=== PATIENT | female | born 1950 | race Caucasian/White ===

== ENCOUNTER 2018-08-19 09:02 | Emergency (ER) | payer MEDICARE ==
[2018-08-19] MEDS ORDERED: NORMAL SALINE 1000 ML 1,000 ML IV ONE ×3 (09:17→13:27)
[2018-08-19] MEDS ORDERED: ONDANSETRON HCL INJ/PF 4 MG/2 ML SDV IV ONE (09:17)
[2018-08-19] MEDS ORDERED: NITROGLYCERIN 2% OINTMENT 1 GM PACKET TP ONE (09:18)
--- NOTE | 2018-08-19 09:20 | ER Document Report ---
ED Medical Screen (RME) - General Chief Complaint: Abdominal Pain Stated Complaint: ABDOMINAL PAIN Time Seen by Provider: 08/19/18 09:16 Notes: 68 years old female presents today with nearly 1 week history of left abdominal pain associated with nausea no vomiting, no diarrhea or constipation. No fever chills. No other constitutional symptoms. She has been losing weight over the last 6 months, 55 pounds weight loss, loss of appetite, general malaise. And noted pain and swelling over the left upper abdomen and flank region. She has not had any colonoscopy, have not seen any physicians since 1990. On examination-lean body mass, left flank has a large tender mass laying subcutaneously TRAVEL OUTSIDE OF THE [place] IN LAST 30 DAYS: No - Related Data Allergies/Adverse Reactions: Penicillins Allergy (Verified 08/19/18 09:04) Physical Exam - Vital signs Vitals: Temp Pulse Resp BP Pulse Ox 98.3 F 142 H 18 147/88 H 98 08/19/18 09:24 08/19/18 09:24 08/19/18 09:24 08/19/18 09:24 08/19/18 09:24 Course - Vital Signs Vital signs: Temp Pulse Resp BP Pulse Ox 98.3 F 142 H 18 147/88 H 98 08/19/18 09:24 08/19/18 09:24 08/19/18 09:24 08/19/18 09:24 08/19/18 09:24
--- NOTE | 2018-08-19 09:42 | RADIOLOGY REPORT (SQ) ---
EXAM DESCRIPTION: ACUTE ABDOMEN SERIES COMPLETED DATE/TIME: 08/19/2018 9:34 am REASON FOR STUDY: Abdominal pain acute COMPARISON: None. NUMBER OF VIEWS: Three views. TECHNIQUE: Frontal chest, supine abdomen and upright/decubitus abdomen radiographic images acquired. LIMITATIONS: None. FINDINGS: CHEST: No consolidation. Minimal linear atelectasis in the left base. No effusions. No pneumothorax. FREE AIR: None. No abnormal gas collections. BOWEL GAS PATTERN: There is moderate stool throughout the colon. No obstruction. CALCIFICATIONS: No suspicious calcifications. HARDWARE: None in the abdomen. SOFT TISSUES: No gross mass or suggestion of organomegaly. BONES: No acute fracture. No worrisome bone lesions. OTHER: No other significant finding. IMPRESSION: NO RADIOGRAPHIC EVIDENCE FOR ACUTE ABDOMINAL DISEASE. TECHNICAL DOCUMENTATION: JOB ID: [id number] [employer]- All Rights Reserved Reading location - IP/workstation name: [email or web address]
--- NOTE | 2018-08-19 10:14 | ER Document Report ---
ED General - General Chief Complaint: Abdominal Pain Stated Complaint: ABDOMINAL PAIN Time Seen by Provider: 08/19/18 09:16 Mode of Arrival: Ambulatory Information source: Patient Notes: 68-year-old female presents emergency department with a one-week history of left upper quadrant abdominal pain with associated nausea and diarrhea. Patient describes the pain as an aching sensation. She denies any radiation of the pain. She denies any alleviating or exacerbating factors. Patient has not had this pain previously. She says she hasn't followed up with a doctor in 30 years. She's unsure if she has any medical issues. She doesn't take medications. She does note a 55lb weight loss over the last 6 months. Patient denies any fever, chills, chest pain or shortness of breath. TRAVEL OUTSIDE OF THE [place] IN LAST 30 DAYS: No - HPI Onset: Last week Onset/Duration: Gradual Quality of pain: Achy Severity: Moderate Associated symptoms: Diarrhea, Nausea, Vomiting Exacerbated by: Denies Relieved by: Denies Similar symptoms previously: No Recently seen / treated by doctor: No - Related Data Allergies/Adverse Reactions: Penicillins Allergy (Verified 08/19/18 09:04) Past Medical History - General Information source: Patient - Social History Smoking Status: Former Smoker Family History: None, Reviewed & Not Pertinent Review of Systems - Review of Systems Constitutional: No symptoms reported EENT: No symptoms reported Cardiovascular: No symptoms reported Respiratory: No symptoms reported Gastrointestinal: Abdominal pain, Diarrhea, Nausea, Vomiting Genitourinary: No symptoms reported Female Genitourinary: No symptoms reported Musculoskeletal: No symptoms reported Skin: No symptoms reported Hematologic/Lymphatic: No symptoms reported Neurological/Psychological: No symptoms reported -: Yes All other systems reviewed and negative Physical Exam - Vital signs Vitals: Temp Pulse Resp BP Pulse Ox 98.3 F 142 H 18 147/88 H 98 08/19/18 09:24 08/19/18 09:24 08/19/18 09:24 08/19/18 09:24 08/19/18 09:24 - Notes Notes: PHYSICAL EXAMINATION: GENERAL: Well-appearing, well-nourished and in no acute distress. HEAD: Atraumatic, normocephalic. EYES: Pupils equal round and reactive to light, extraocular movements intact, conjunctiva are normal. ENT: Nares patent, oropharynx clear without exudates. Moist mucous membranes. NECK: Normal range of motion, supple without lymphadenopathy LUNGS: Breath sounds clear to auscultation bilaterally and equal. No wheezes rales or rhonchi. HEART: Regular rate and rhythm without murmurs ABDOMEN: Soft, tenderness to palpation in the LUQ. No rebound or guarding. Female : deferred Musculoskeletal: Normal range of motion, no pitting or edema. No cyanosis. NEUROLOGICAL: Cranial nerves grossly intact. Normal speech, normal gait. Normal sensory, motor exams PSYCH: Normal mood, normal affect. SKIN: Warm, Dry, normal turgor, no rashes or lesions noted. Course - Re-evaluation Re-evalutation: 08/19/18 10:09 EKG: Ventricular rate 118, VT interval 132, castration 86, QTc 455, sinus tachycardia, no ischemic changes. 08/19/18 13:55 Labs and imaging obtained. Patient's hemoglobin is 9.7. Rectal exam done. Patient is Hemoccult positive. Patient's white blood cell count is 23.8. Urinalysis shows signs of a urinary tract infection. CT of the abdomen pelvis was done. This shows a large irregular mass involving the wall of the colon at the splenic flexure consistent with a colonic malignancy. There is soft tissue in the adjacent abdominal wall of the left flank which appears to be an extension of the mass. There is also possible metastasis to the left adrenal and there is retroperitoneal adenopathy consistent with metastasis. I discussed the results with the patient. She does not want to be admitted to the hospital. Patient is still tachycardic. She understands that her condition may worsen or she may by leaving. Patient is competent to make her own decisions. She understands the risks of leaving AGAINST MEDICAL ADVICE and continues to refuse admission. I spoke with the oncologist on-call, Dr. Brand. She will see the patient in follow-up. She would like the patient to also have a referral to a transporter driver to have a colonoscopy done for biopsies. I discussed this plan with the patient. She is agreeable with following up outpatient with Dr. Rivera and with gastroenterology. Patient continues to decline admission. - Vital Signs Vital signs: Temp Pulse Resp BP Pulse Ox 98.3 F 142 H 18 147/88 H 98 08/19/18 09:24 08/19/18 09:24 08/19/18 09:24 08/19/18 09:24 08/19/18 09:24 - Laboratory Result Diagrams: 08/19/18 10:15 08/19/18 10:15 Laboratory results interpreted by me: 08/19/18 08/19/18 08/19/18 10:15 10:15 10:15 WBC 23.8 H Hgb 9.7 L Hct 31.4 L MCV 69 L MCH 21.3 L MCHC 30.8 L RDW 17.7 H Plt Count 797 H Seg Neuts % (Manual) 94 H Lymphocytes % (Manual) 1 L Metamyelocytes % 1 H Abs Neuts (Manual) 22.6 H Abs Lymphs (Manual) 0.2 L Glucose 127 H AST 46 H Alkaline Phosphatase 198 H Ammonia < 8.7 L Total Protein 6.1 L Albumin 2.8 L Urine Ketones Ur Leukocyte Esterase 08/19/18 12:00 WBC Hgb Hct MCV MCH MCHC RDW Plt Count Seg Neuts % (Manual) Lymphocytes % (Manual) Metamyelocytes % Abs Neuts (Manual) Abs Lymphs (Manual) Glucose AST Alkaline Phosphatase Ammonia Total Protein Albumin Urine Ketones TRACE H Ur Leukocyte Esterase LARGE H Discharge - Discharge Clinical Impression: Mass of colon Urinary tract infection Qualifiers: Urinary tract infection type: site unspecified Hematuria presence: without hematuria Qualified Code(s): N39.0 - Urinary tract infection, site not specified Disposition: AGAINST MEDICAL ADVICE Instructions: Urinary Tract Infection ([facility]) Prescriptions: Levofloxacin [Levaquin 750 mg Tablet] 750 mg PO DAILY #5 tablet Ondansetron [Zofran Odt 4 mg Tablet] 1 tab PO Q4H PRN #15 tab.rapdis PRN Reason: For Nausea/Vomiting Referrals: SUGEY NICOLE MD [ACTIVE STAFF] - Follow up as needed RASHAD BAUTISTA MD [ACTIVE STAFF] - Follow up as needed
[2018-08-19 10:48] LABS: HEMATOCRIT 31.4 % (36.0-47.0); HEMOGLOBIN 9.7 g/dL (12.0-15.5); MEAN CORPUSCULAR HEMOGLOBIN 21.3 pg (27.0-33.4); MEAN CORPUSCULAR HGB CONC 30.8 g/dL (32.0-36.0); MEAN CORPUSCULAR VOLUME 69 fl (80-97); PLATELET COUNT 797 10^3/uL (150-450); RED BLOOD COUNT 4.55 10^6/uL (3.72-5.28); RED CELL DISTRIBUTION WIDTH 17.7 % (11.5-14.0); WHITE BLOOD COUNT 23.8 10^3/uL (4.0-10.5)
[2018-08-19 11:01] LABS: ALANINE AMINOTRANSFERASE 20 U/L (9-52); ALBUMIN 2.8 g/dL (3.5-5.0); ALKALINE PHOSPHATASE 198 U/L (38-126); ANION GAP 12 (5-19); ASPARTATE AMINO TRANSFERASE 46 U/L (14-36); BILIRUBIN,DIRECT 0.4 mg/dL (0.0-0.4); BILIRUBIN,TOTAL 0.6 mg/dL (0.2-1.3); BLOOD UREA NITROGEN 18 mg/dL (7-20); CARBON DIOXIDE 24 mmol/L (22-30); CHLORIDE 102 mmol/L (98-107); GLUCOSE 127 mg/dL (75-110); LIPASE 23.2 U/L (23-300); SODIUM 138.1 mmol/L (137-145); TOTAL PROTEIN 6.1 g/dL (6.3-8.2)
[2018-08-19 11:27] LABS: ABSOLUTE LYMPHOCYTES# (MANUAL) 0.2 10^3/uL (0.5-4.7); ABSOLUTE NEUTROPHILS# (MANUAL) 22.6 10^3/uL (1.7-8.2); ANISOCYTOSIS 2+; BASOPHILS % (MANUAL) 0 % (0-2); EOSINOPHILS % (MANUAL) 0 % (0-6); HYPOCHROMASIA 1+; LYMPHOCYTES % (MANUAL) 1 % (13-45); METAMYELOCYTES % (MANUAL) 1 % (0); MONOCYTES % (MANUAL) 4 % (3-13); PLATELET COMMENT INCREASED; POLYCHROMASIA SLIGHT; SEGMENTED NEUTROPHILS % (MAN) 94 % (42-78); TOTAL CELLS COUNTED 100; TOXIC GRANULATION SLIGHT; TOXIC VACUOLATION PRESENT
[2018-08-19 12:38] LABS: APPEARANCE,URINE SLIGHTLY-CLOUDY; BILIRUBIN,URINE NEGATIVE (NEGATIVE); COLOR,URINE YELLOW; GLUCOSE, URINE NEGATIVE (NEGATIVE); KETONES,URINE TRACE mg/dL (NEGATIVE); LEUKOCYTE ESTERASE,URINE LARGE (NEGATIVE); NITRITE,URINE NEGATIVE (NEGATIVE); PROTEIN,URINE NEGATIVE (NEGATIVE); URINE SPECIFIC GRAVITY 1.006; UROBILINOGEN,URINE NEGATIVE mg/dL (<2.0)
--- NOTE | 2018-08-19 13:16 | RADIOLOGY REPORT (SQ) ---
EXAM DESCRIPTION: CT ABD/PELVIS WITH IV ORAL COMPLETED DATE/TIME: 08/19/2018 1:00 pm REASON FOR STUDY: Abdominal pain, weight loss, possible colonic mass COMPARISON: None. TECHNIQUE: CT scan of the abdomen and pelvis performed with intravenous and oral contrast using hasmukh taco scanning technique with dynamic intravenous contrast injection. Images reviewed with lung, soft t issue, and bone windows. Reconstructed coronal and sagittal MPR images reviewed. Delayed images for e valuation of the urinary system also acquired. All images stored on PACS. All CT scanners at this facility use dose modulation, iterative reconstruction, and/or weight based d osing when appropriate to reduce radiation dose to as low as reasonably achievable (ALARA). [facility]: Dose Right [facility]: CareDose [facility]: Dose Right [facility]: Teradose 4D [facility]: Bill Me Later CONTRAST TYPE AND DOSE: contrast/concentration: Isovue 350.00 mg/ml; Total Contrast Delivered: 75.0 ml; Total Saline Delivered: 67.0 ml RENAL FUNCTION: BUN 18 creatinine 0.73. RADIATION DOSE: CT Rad equipment meets quality standard of care and radiation dose reduction techniq ues were employed. CTDIvol: 6.9 - 9.5 mGy. DLP: 904 mGy-cm. . LIMITATIONS: None. FINDINGS: LOWER CHEST: Small left pleural effusion. LIVER: Normal size. Marked diffuse fatty infiltration. No masses. No dilated ducts. SPLEEN: Normal size. No focal lesions. PANCREAS: No masses. No significant calcifications. No adjacent inflammation or peripancreatic fluid collections. Pancreatic duct not dilated. GALLBLADDER: No identified stones by CT criteria. No inflammatory changes to suggest cholecystitis. ADRENAL GLANDS: 2.5 cm mass in the left adrenal gland. Borderline prominence of the right adrenal gl and. RIGHT KIDNEY AND URETER: No solid masses. No significant calcifications. No hydronephrosis or hyd roureter. LEFT KIDNEY AND URETER: No solid masses. No significant calcifications. No hydronephrosis or hydr oureter. AORTA AND VESSELS: No aneurysm. No dissection. Renal arteries, SMA, celiac without stenosis. RETROPERITONEUM: Retroperitoneal lymph nodes in the left periaortic region measuring 2 x 2.5 cm and 2 .2 x 3.1 cm. Central decreased attenuation. BOWEL AND PERITONEAL CAVITY: Marked irregular soft tissue mass involving the wall of the colon at the splenic flexure. APPENDIX: Normal. PELVIS: No significant masses. Normal bladder. No free fluid. ABDOMINAL WALL: Irregular low-attenuation soft tissue mass in the left flank immediately adjacent to the colon mass, measuring 4 x 8 cm. No hernias. BONES: No significant or acute findings. OTHER: No other significant finding. IMPRESSION: 1. LARGE IRREGULAR MASS INVOLVING THE WALL OF THE COLON AT THE SPLENIC FLEXURE CONSISTENT WITH COLON MALIGNANCY. THERE IS SOFT TISSUE IN THE ADJACENT ABDOMINAL WALL OF THE LEFT FLANK WHICH APPEARS TO B E DUE TO DIRECT EXTENSION OF THE COLONIC MASS INTO THE ABDOMINAL WALL. 2. RETROPERITONEAL ADENOPATHY CONSISTENT WITH METASTASES. 3. LEFT ADRENAL MASS SUSPICIOUS FOR METASTASIS. 4. SMALL LEFT PLEURAL EFFUSION. 5. MARKED FATTY INFILTRATION OF THE LIVER. TECHNICAL DOCUMENTATION: JOB ID: [id number] Quality ID # [id number]: Final reports with documentation of one or more dose reduction techniques (e.g., Au tomated exposure control, adjustment of the mA and/or kV according to patient size, use of iterative reconstruction technique) 2010 [employer]- All Rights Reserved Reading location - IP/workstation name: [email or web address]
[2018-08-19] MEDS ORDERED: FENTANYL CITRATE INJ/PF 100 MCG/2 ML AMPUL IV ONE (13:27)
[2018-08-19] MEDS ORDERED: LEVOFLOXACIN 250 MG TABLET PO ONE (13:54)
[2018-08-19 14:10] VITALS: BP 195/105
--- NOTE | 2018-08-19 20:50 | EKG REPORT ---
SEVERITY:- ABNORMAL ECG - SINUS TACHYCARDIA CONSIDER LEFT VENTRICULAR HYPERTROPHY : Confirmed by: Crissy Quintero MD 19-Aug-2018 20:50:10
== END 2018-08-19 14:18 | disposition left against medical advice (07) ==
LOC: ER 09:02
DX: N39.0 Urinary tract infection, site not specified (principal); K63.9 Disease of intestine, unspecified; R10.9 Unspecified abdominal pain
CPT/HCPCS: 93005; 99285; 96361; 96374; 36415; 82140; 83690; 85025; 82272; 80053; 81001; 74022; 74177; 93010; J3010; A9270